=== PATIENT | female | born 1975 | race Caucasian/White ===

== ENCOUNTER 2017-10-25 16:39 | Emergency (ER) | payer BC ==
[2017-10-25 18:01] LABS: BASOPHILS 0.5 % (0-2); EOSINOPHILS 3.8 % (0-7); HEMATOCRIT 40.3 % (36.0-48.0); IMMATURE GRANULOCYTES 0.2 % (0-5); LYMPHOCYTES 36.3 % (15-50); MCH 32.3 pg (26.0-34.0); MCHC 34.7 g/dL (31.0-37.0); MCV 92.9 fL (80.0-100.0); MEAN PLATELET VOLUME 9.5 fL (7.4-10.4); MONOCYTES 6.1 % (2-11); NEUTROPHILS 53.1 % (40-80); PLATELET COUNT 228 10x3/uL (130-400); RBC 4.34 10x6/uL (4.00-5.40); WBC 9.5 10x3/uL (4.8-10.8)
[2017-10-25 18:14] LABS: ALBUMIN 3.6 g/dL (3.4-5.0); ALKALINE PHOSPHATASE 108 U/L (46-116); ALT (SGPT) 45 U/L (10-68); BILIRUBIN - TOTAL 0.58 mg/dL (0.2-1.3); CALC OSMOLALITY 277 mosm/kg (275-300); CALCIUM 8.7 mg/dL (8.5-10.1); CARBON DIOXIDE 27.5 mmol/L (21.0-32.0); CHLORIDE - SERUM 106 mmol/L (98-107); CREATININE - SERUM 0.8 mg/dL (0.6-1.3); GLUCOSE 77 mg/dL (74-106); POTASSIUM - SERUM 3.8 mmol/L (3.5-5.1); PROTEIN - SERUM 7.5 g/dL (6.4-8.2); SODIUM 141 mmol/L (136-145); UREA NITROGEN 7 mg/dL (7-18); eGFR NON AFRICAN AMERICAN 84 mL/min (90-120)
[2017-10-25 18:31] LABS: APPEARANCE HAZY (CLEAR); BILIRUBIN NEGATIVE (NEGATIVE); COLOR YELLOW (YELLOW); GLUCOSE NEGATIVE (NEGATIVE); KETONE NEGATIVE (NEGATIVE); NITRITE NEGATIVE (NEGATIVE); PROTEIN NEGATIVE (NEGATIVE); SPECIFIC GRAVITY 1.015 (1.005-1.020); UROBILINOGEN NORMAL (NORMAL)
== END 2017-10-25 20:03 | disposition home or self-care (01) ==
LOC: D.ER 16:39
PROVIDERS: Family Medicine
DX: K63.9 Disease of intestine, unspecified (principal); R19.7 Diarrhea, unspecified

== ENCOUNTER → 2017-12-30 15:09 | Outpatient (CLI) | payer BC | END | disposition home or self-care (01) | LOC: D.RAD 08:00 | DX: K59.00 Constipation, unspecified (principal) ==

== ENCOUNTER → 2018-02-18 08:48 | Outpatient (CLI) | payer BC | END | disposition home or self-care (01) | LOC: D.RAD 08:48 | DX: R13.10 Dysphagia, unspecified (principal) ==

== ENCOUNTER → 2020-03-27 15:31 | Outpatient (CLI) | payer BC | END | disposition home or self-care (01) | LOC: D.RAD 15:31 | PROVIDERS: ATTEND Nurse Practitioner Family | DX: S33.5XXA Sprain of ligaments of lumbar spine, initial encounter (principal); X58.XXXA Exposure to other specified factors, initial encounter ==